=== PATIENT | female | born 1990 | race Hispanic/Latino ===

== ENCOUNTER 2025-05-13 10:24 | Emergency (ER) | payer SELFPAY ==
[2025-05-13] MEDS ORDERED: Famotidine/PF 20 mg/2ml Vial ONE (10:46)
[2025-05-13] MEDS ORDERED: diphenhydrAMINE 50 MG/ML VIAL ONE (10:46)
[2025-05-13 10:54] LABS: #Basophils Less than 0.03 10x3/uL (0.0-0.2); #Eosinophils 0.09 10x3/uL (0.0-0.5); #Monocytes 0.57 10x3/uL (0.0-1.1); #Neutrophils 7.47 10x3/uL (1.5-8.4); %Basophils 0.2 % (0.0-2.0); %Eosinophils 0.8 % (0.0-6.0); %Lymphocytes 23.9 % (18.0-47.0); %Monocytes 5.3 % (0.0-10.0); %Neutrophils 69.6 % (40.0-75.0); Hematocrit 41.1 % (34.9-44.5); Hemoglobin 13.8 g/dL (12.0-15.5); Mean Corpuscular Hemoglobin 28.9 pg (27.0-33.0); Mean Corpuscular Volume 86.2 fL (81.6-98.3); Platelet Count 278 10x3/uL (150-450); Red Blood Cell (RBC) Count 4.77 10x6/uL (3.90-5.03); White Blood Cell (WBC) Count 10.74 10x3/uL (3.5-10.5)
[2025-05-13 11:01] LABS: BHCG - Serum Negative (NEGATIVE); Pregs Control Background? CLEAR/WHITE (CLR/WHITE); Pregs Control Bar Appear? YES (CONTROL BAR)
[2025-05-13 11:09] LABS: ALT (SGPT) 15 U/L (Less than 34); AST (SGOT) 17 U/L (11-34); Albumin 4.3 g/dL (3.1-4.5); Alkaline Phosphatase 69 U/L (40-110); Anion Gap 13 mmol/L (10-20); BUN (Urea Nitrogen) 26 mg/dL (7.0-18.7); Bilirubin, Total 0.3 mg/dL (0.3-1.2); Calc. Creatinine Clearance 0 mL/min (70-130); Calcium 9.8 mg/dL (7.8-10.44); Carbon Dioxide 22 mmol/L (22-29); Chloride 107 mmol/L (98-107); Globulin 3.2 g/dL (2.4-3.5); Glucose 136 mg/dL (70-105); Lipase 24 U/L (8-78); Potassium 4.1 mmol/L (3.5-5.1); Sodium 138 mmol/L (136-145)
[2025-05-13] MEDS ORDERED: Ketorolac Tromethamine 30 MG (1 mL) VIAL ONE (11:31)
[2025-05-13 11:38] LABS: Troponin I Less than 0.010 ng/mL (< 0.028)
== END 2025-05-13 12:23 | disposition home or self-care (01) ==
LOC: CSHERS 10:24
DX: R11.16 Cannabis hyperemesis syndrome (principal)
CPT/HCPCS: 71045; 80053; 83690; 84484; 84703; 85025; 93005; 96374; 96375; J1200; J1308; J1630; J1885